=== PATIENT | male | born 1985 | race Caucasian/White ===

== ENCOUNTER 2023-02-15 19:37 | Emergency (ER) | payer OTHER ==
[2023-02-15] MEDS ORDERED: Proparacaine 0.5% Ophth Soln 15 ML Bottle EYELF ONE (20:16)
[2023-02-15] MEDS ORDERED: Fluorescein 1 MG Ophth Strip EYERT ONE (20:17)
[2023-02-15] MEDS ORDERED: Polymyxin B/Trimethoprim 10 ML Bottle EYERT ONE (20:31)
== END 2023-02-15 20:36 | disposition home or self-care (01) ==
LOC: VM.ED 19:37
DX: T15.11XA Foreign body in conjunctival sac, right eye, initial encounter (principal); S05.01XA Injury of conjunctiva and corneal abrasion without foreign body, right eye, initial encounter
CPT/HCPCS: 65205; 99283; A9270; 65220; J3490